=== PATIENT | male | born 1970 | race Caucasian/White ===

== ENCOUNTER 2016-12-02 07:47 | Emergency (ER) | payer OTHER | END 2016-12-02 09:38 | disposition home or self-care (01) | LOC: FER 07:47 | DX: S23.3XXA Sprain of ligaments of thoracic spine, initial encounter (principal); M47.814 Spondylosis without myelopathy or radiculopathy, thoracic region; R11.10 Vomiting, unspecified; F17.210 Nicotine dependence, cigarettes, uncomplicated; Z87.19 Personal history of other diseases of the digestive system | CPT/HCPCS: 72128; J1100 ==

== ENCOUNTER 2020-08-01 22:30 | Emergency (ER) | payer OTHER ==
[~2020-08-01 22:30] MED LIST: ASPIRIN EC81 MG PO; MEDROL 4MG DOSEP4 MG PO; VENTOLIN HFA IN18 GM INH
[2020-08-02] MEDS ORDERED: AMOXICILLIN500 MG PO (00:13)
[2020-08-02] MEDS ORDERED: NORCO 5-325 TA1 EACH PO (00:13)
== END 2020-08-02 00:28 | disposition home or self-care (01) ==
LOC: FER 22:30
DX: K05.219 Aggressive periodontitis, localized, unspecified severity (principal); K03.81 Cracked tooth; F17.200 Nicotine dependence, unspecified, uncomplicated; Z88.8 Allergy status to other drugs, medicaments and biological substances
CPT/HCPCS: J1885; Q0163